=== PATIENT | female | born 1995 | race African-American/Black ===

== ENCOUNTER → 2016-11-08 | Outpatient (CLI) | payer MEDICAID ==
--- NOTE | 2016-11-08 16:56 | RADIOLOGY REPORT (SQ) ---
EXAM DESCRIPTION: U/S [id number] TRNABD 1GES W/ODOP COMPLETED DATE/TIME: 11/08/2016 4:41 pm REASON FOR STUDY: ENCOUNTER FOR SUPERVISION OF OTHER NORMAL Z34.81 ENCOUNTER FOR SUPRVSN OF NORMAL , FIRST TRIM COMPARISON: None. TECHNIQUE: Transabdominal static and realtime grayscale images acquired of the pelvis. Additional se lected spectral and color Doppler images recorded. All images stored on PACs. bHCG: Not applicable. LIMITATIONS: None. FINDINGS: FETUS: Living intrauterine . EGA: 10 week. NIA: 06/06/2017. FHR: 180 beats per minute. SUBCHORIONIC BLEED: Yes. SIZE OF BLEED: Hypoechoic areas measuring 0.9 x 1.3 x 3.2 cm and 0.9 x 1.3 x 3.9 cm. UTERUS: No masses. No anomalies. CERVICAL LENGTH: 3.8 cm. Closed. RIGHT ADNEXA: Normal ovary with normal vascular flow. No adnexal free fluid. No adnexal masses. LEFT ADNEXA: Normal ovary with normal vascular flow. No adnexal free fluid. No adnexal masses. FREE FLUID: None. OTHER: No other significant finding. IMPRESSION: LIVING INTRAUTERINE . EGA 10 WEEK. HYPOECHOIC AREAS CONCERNING FOR SUBCHORIONIC BLEED. Trimester of : First - 0 to 13 weeks. TECHNICAL DOCUMENTATION: JOB ID: [id number] [employer]- All Rights Reserved
== END ==
LOC: RAD 15:12
PROVIDERS: ATTEND Nurse Practitioner Women's Health
DX: Z34.81 Encounter for supervision of other normal pregnancy, first trimester (principal)
CPT/HCPCS: 76801

== ENCOUNTER 2017-05-24 18:27 | Outpatient (CLI) | payer MEDICAID ==
[2017-05-24 19:03] LABS: APPEARANCE,URINE CLEAR; BILIRUBIN,URINE NEGATIVE (NEGATIVE); COLOR,URINE COLORLESS; GLUCOSE, URINE NEGATIVE (NEGATIVE); KETONES,URINE NEGATIVE (NEGATIVE); LEUKOCYTE ESTERASE,URINE NEGATIVE (NEGATIVE); NITRITE,URINE NEGATIVE (NEGATIVE); PROTEIN,URINE NEGATIVE (NEGATIVE); URINE SPECIFIC GRAVITY 1.002; UROBILINOGEN,URINE NEGATIVE mg/dL (<2.0)
--- NOTE | 2017-05-24 19:10 | Non Stress Test Report ---
Non Stress Test Datetime Report Generated by CPN: 05/24/2017 19:10 DEMOGRAPHIC EGA NST: 37.3 INDICATION Indication for Study: Decreased Movement VITAL SIGNS Temperature - NST: 98.1 MONITORING Monitor Explained: Monitor Explained; Test Explained; Patient Verbalized Understanding Time on Monitor: 05/24/2017 18:46 Time off Monitor: 05/24/2017 19:06 NST Duration: 20 NST INTERVENTIONS NST Interventions: PO Hydration; Reposition Patient Physician Notified NST: Arcenio, CNM BABY A: [id number] BABY A Movement : Present Contraction Frequency : 0 FHR Baseline : 130 Accelerations : 15X15 Decelerations : None Variability : Moderate 6-25bpm NST Review: Meets Criteria for Reactive NST NST Review and Verified By : Mireya Momin RN NST Results: Reactive NST REPORT Report Trigger: Send Report
[2017-05-24 20:31] LABS: URINE AMPHETAMINES SCREEN NEGATIVE; URINE BARBITURATES SCREEN NEGATIVE; URINE BENZODIAZEPINES SCREEN NEGATIVE; URINE COCAINE SCREEN NEGATIVE; URINE MARIJUANA (THC) SCREEN NEGATIVE; URINE METHADONE SCREEN NEGATIVE; URINE PHENCYCLIDINE SCREEN NEGATIVE
== END 2017-05-24 19:08 | disposition home or self-care (01) ==
LOC: LC 18:27
PROVIDERS: ATTEND Student in an Organized Health Care Education/Training Program
PROC: 4A1HXCZ Monitoring of Products of Conception, Cardiac Rate, External Approach (ICD-10-PCS; principal; 2017-05-24)
DX: O47.1 False labor at or after 37 completed weeks of gestation (principal); Z3A.37 37 weeks gestation of pregnancy
CPT/HCPCS: 59025; 80307; 81005

== ENCOUNTER 2017-06-06 02:13 | Inpatient (IN) | payer MEDICAID ==
[2017-06-06 03:13] LABS: APPEARANCE,URINE SLIGHTLY-CLOUDY; BILIRUBIN,URINE NEGATIVE (NEGATIVE); COLOR,URINE YELLOW; GLUCOSE, URINE NEGATIVE (NEGATIVE); KETONES,URINE NEGATIVE (NEGATIVE); LEUKOCYTE ESTERASE,URINE LARGE (NEGATIVE); NITRITE,URINE NEGATIVE (NEGATIVE); PROTEIN,URINE NEGATIVE (NEGATIVE); URINE SPECIFIC GRAVITY 1.004
[2017-06-06 03:40] LABS: URINE AMPHETAMINES SCREEN NEGATIVE; URINE BARBITURATES SCREEN NEGATIVE; URINE BENZODIAZEPINES SCREEN NEGATIVE; URINE COCAINE SCREEN NEGATIVE; URINE MARIJUANA (THC) SCREEN NEGATIVE; URINE METHADONE SCREEN NEGATIVE; URINE PHENCYCLIDINE SCREEN NEGATIVE
[2017-06-06] MEDS ORDERED: RINGERS SOLUTION,LACTATED 1,000 ML IV PRN (04:14)
[2017-06-06] MEDS ORDERED: PENICILLIN G POTASSIUM 5,000,000 UNIT in DEXTROSE 5%-WATER 100 ML IV ONE (04:14)
[2017-06-06] MEDS ORDERED: RINGERS SOLUTION,LACTATED 1,000 ML IV ONE (04:14)
[2017-06-06] MEDS ORDERED: PENICILLIN G-K 5 MILLION UNIT VIAL ONE (04:23)
[2017-06-06] MEDS ORDERED: MISOPROSTOL 0.2 MG TABLET ONE (04:30)
[2017-06-06] MEDS ORDERED: OXYTOCIN/NORMAL SALINE 20 UNIT/1,000 ML RTUINJ ONE (04:30)
[2017-06-06] MEDS ORDERED: LIDOCAINE 1% INJ-PF (10 MG/ML) 30 ML SDV ONE (04:30)
[2017-06-06 04:42] LABS: ABSOLUTE LYMPHOCYTES (AUTO) 1.4 10^3/uL (0.5-4.7); ABSOLUTE MONOCYTES (AUTO) 0.6 10^3/uL (0.1-1.4); ABSOLUTE NEUT (AUTO) 4.8 10^3/uL (1.7-8.2); BASOPHILS % (AUTO) 0.5 % (0-2); EOSINOPHILS % (AUTO) 0.5 % (0-6); HEMATOCRIT 36.3 % (36.0-47.0); HEMOGLOBIN 12.6 g/dL (12.0-15.5); LYMPHOCYTES % (AUTO) 20.5 % (13-45); MEAN CORPUSCULAR HEMOGLOBIN 33.6 pg (27.0-33.4); MEAN CORPUSCULAR HGB CONC 34.8 g/dL (32.0-36.0); MEAN CORPUSCULAR VOLUME 97 fl (80-97); MONOCYTES % (AUTO) 9.3 % (3-13); PLATELET COUNT 213 10^3/uL (150-450); RED BLOOD COUNT 3.75 10^6/uL (3.72-5.28); RED CELL DISTRIBUTION WIDTH 15.1 % (11.5-14.0); SEGMENTED NEUTROPHILS % (AUTO) 69.2 % (42-78); TOTAL CELLS COUNTED % (AUTO) 100 %
[2017-06-06] MEDS ORDERED: BUPIVACAINE HCL 0.25 % INJ/PF (2.5 MG/1 ML) 30 ML VIAL ONE (05:02)
[2017-06-06] MEDS ORDERED: EPHEDRINE SULFATE INJ 50 MG/1 ML AMPULE ONE (05:02)
[2017-06-06] MEDS ORDERED: FENTANYL/BUPIVACAINE/NS/PF 200 MCG/100 ML RTUINJ EPI ONE (05:02)
[2017-06-06] MEDS ORDERED: OXYTOCIN/NORMAL SALINE 20 UNIT/1,000 ML RTUINJ IV PRN (06:47)
[2017-06-06] MEDS ORDERED: GLYCERIN/WITCH HAZEL LEAF 1 EACH MED..PAD TP PRN (06:47)
[2017-06-06] MEDS ORDERED: ACETAMINOPHEN WITH CODEINE #3 TABLET PO PRN ×2 (06:47)
[2017-06-06] MEDS ORDERED: PROMETHAZINE HCL 25 MG SUPP.RECT PR PRN (06:47)
[2017-06-06] MEDS ORDERED: MAGNESIUM HYDROXIDE SUSP 30 ML UDCUP PO PRN (06:47)
[2017-06-06] MEDS ORDERED: ACETAMINOPHEN 650 MG SUPP.RECT PR PRN (06:47)
[2017-06-06] MEDS ORDERED: DIPH/PERTUSS(ACELL)/TETANUS VAC/PF 0.5 ML SYR (>=10YO) IM PRN (06:47)
[2017-06-06] MEDS ORDERED: PROMETHAZINE HCL INJ 25 MG/1 ML VIAL IV PRN (06:47)
[2017-06-06] MEDS ORDERED: DIPHENHYDRAMINE HCL 25 MG CAPSULE PO PRN (06:47)
[2017-06-06] MEDS ORDERED: PROMETHAZINE HCL 25 MG TABLET PO PRN (06:47)
[2017-06-06] MEDS ORDERED: MEASLES,MUMPS&RUBELLA VACC/PF 0.5 ML VIAL SUBCUT PRN (06:47)
[2017-06-06] MEDS ORDERED: ZOLPIDEM TARTRATE 5 MG TABLET PO PRN (06:47)
[2017-06-06] MEDS ORDERED: NA PHOS,M-B/NA PHOS,DI-BA (ADULT) 133 ML ENEMA PR PRN (06:47)
[2017-06-06] MEDS ORDERED: DIBUCAINE 1% OINTMENT 28 GM TP PRN (06:47)
[2017-06-06] MEDS ORDERED: BENZOCAINE/MENTHOL AEROSOL SPRAY 56 ML TOP PRN (06:47)
[2017-06-06] MEDS ORDERED: PSEUDOEPHEDRINE HCL 30 MG TABLET PO PRN (06:47)
[2017-06-06] MEDS ORDERED: ACETAMINOPHEN 325 MG TABLET ONE ×2 (07:52→10:19)
[2017-06-06] MEDS ORDERED: PENICILLIN G POTASSIUM 2,500,000 UNIT in DEXTROSE 5%-WATER 50 ML IV SCH (08:14)
[2017-06-06] MEDS ORDERED: PENICILLIN G-K 5 MILLION UNIT VIAL IV SCH (08:15)
--- NOTE | 2017-06-06 08:31 | Delivery Summary ---
Del Sum A-C Datetime Report Generated by CPN: 06/06/2017 08:30 DELIVERY PERSONNEL DELIVERY PERSONNEL: [id number] Delivery Doctor:: Jonathan Ribeiro MD Labor and Delivery Nurse:: Hermelinda Rodarte RN Labor and Delivery Nurse:: Beth Gerardo RN Burrer Marker Axle/STOCK LAYER: [place], STOCK LAYER MATERNAL INFORMATION Delivery Anesthesia: Epidural Medications After Delivery: Pitocin Bolus-Please Comment; Pitocin Drip 20 Units/1000ml NSS Estimated Blood Loss (ml): 250 Maternal Complications: None LABOR SUMMARY EDC: 06/11/2017 00:00 No. Babies in Womb: 1 Attempted: No Labor Anesthesia: Epidural LABOR INFORMATION Reason for Induction: Not Applicable Onset of Labor: 06/06/2017 03:56 Complete Dilatation: 06/06/2017 06:21 Oxytocin: N/A Group B Beta Strep: POSITIVE Antibiotics # of Doses: 1 Antibiotics Time of Last Dose: 0432 Name of Antibiotic Given: PCN Steroids Given: None Reason Steroids Not Administered: Not Applicable MEMBRANES Membranes Rupture Method: Artificial Rupture of Membranes: 06/06/2017 06:27 Length of Rupture (hr): 0.10 Amniotic Fluid Color: Clear Amniotic Fluid Amount: Moderate Amniotic Fluid Odor: Normal STAGES OF LABOR Stage 1 hr: 2 Stage 1 min: 25 Stage 2 hr: 0 Stage 2 min: 12 Stage 3 hr: 0 Stage 3 min: 7 Total Time in Labor hr: 2 Total Time in Labor min: 44 VAGINAL DELIVERY Episiotomy: None Laceration #1: None Laceration Extension #1: N/A Laceration Repair: Not Applicable Sponge Count Correct: Vaginal Sweep Performed Sharps Count Correct: Yes CSECTION DELIVERY Primary Indication: N/A Secondary Indication: N/A CSection Incidence: N/A Labor: N/A Elective: N/A CSection Incision: N/A BABY A INFORMATION Delivery Date/Time: 06/06/2017 06:33 Method of Delivery: Vaginal Born in Route : No : N/A Forceps: N/A Vacuum Extraction: N/A Shoulder Dystocia : No PRESENTATION/POSITION BABY A Presentation: Cephalic Cephalic Presentation: Vertex Vertex Position: Left Occipital Anterior Breech Presentation: N/A PLACENTA INFORMATION BABY A Placenta Delivery Time : 06/06/2017 06:40 Placenta Method of Delivery: Spontaneous Placenta Status: Delivered SCORES BABY A Heart Rate 1 min: >100 bpm Resp Effort 1 min: Good Cry Reflex Irritability 1 min: Cough or Sneeze or Pulls Away Muscle Tone 1 min: Active Motion Color 1 min: Blue/Pale SCORE 1 MIN: 8 Heart Rate 5 min: >100 bpm Resp Effort 5 min: Good Cry Reflex Irritability 5 min: Cough or Sneeze or Pulls Away Muscle Tone 5 min: Active Motion Color 5 min: Body [place], Extremities Blue SCORE 5 MIN: 9 INFANT INFORMATION BABY A Gestational Age at Delivery: 39.2 Gestational Status: Full Term- 39- 40.6 Weeks Outcome : Liveborn Condition : Stable Infant Sex: Male IDENTIFICATION BABY A Infant Verification Date/Time: 06/06/2017 06:40 ID Band Number: [id number] Mother's Name Verified: Yes Infant RN Verifying : SBraulio Canas, RN Additional Verifying Personnel: [employer], ST WEIGHT/LENGTH BABY A Birthweight (gm): 3280 Weight (lb): 7 Infant Weight (oz): 4 Length (in): 19.25 Infant Length (cm): 48.90 CORD INFORMATION BABY A No. Cord Vessels: 3 Nuchal Cord : N/A Cord Blood Taken: Yes-For Eval (Mom's Blood Type - or O+) Infant Suction: Mouth; Nose ASSESSMENT BABY A Infant Complications: None Physical Findings at Delivery: Within Normal Limits Respirations: Appears Normal Skin to Skin: No Transferred To: Remains with Mother BABY B INFORMATION : N/A SIGNATURES Signature: with User ID: [email or web address]
--- NOTE | 2017-06-06 08:53 | Admission Physical ---
Datetime Report Generated by CPN: 06/06/2017 08:53 CURRENT ADMISSION Chief Complaint: Uterine Contractions Indication for Induction: Not Applicable Indication for Induction: Term, Intrauterine Admit Plan: Admit to Unit; Initiate Labor Protocol ALLERGIES Medication Allergies: No Medication Allergies: No Known Drug Allergies (06/06/2017) Medication Allergies: No Known Drug Allergies (01/20/2014) Latex: No Latex Allergies Food Allergies: none Environmental Allergies: none OBSTETRICAL HISTORY EDC: 06/11/2017 00:00 : 5 Para: 1 Term: 1 : 0 SAB: 0 IAB: 3 Ectopic: 0 Livin Cesareans: 0 VBACs: 0 Multiple Births: 0 Gestational Diabetes: No Rh Sensitization: No Incompetent Cervix: No RUPAL: No Infertility: No ART Treatment: No Uterine Anomaly: No IUGR: No Hx Previous C/S: No Macrosomia: No Hx Loss/Stillborn: No PIH: No Hx : No Placenta Previa/Abruption: No Depression/PP Depression: No PTL/PROM: No Post Hemorrhage: No Obstetrical History Comments: G1 2011 EAB G2 2012 EAB G3 2013 41 wks 7lb 6oz G4 2014 EAB G5 current SEE RECORDS Alcohol: No Marijuana : No Cocaine: No Other Illicit Drugs: No Cigarettes: Never Smoker. [id number] MEDICAL HISTORY Diabetes: No Blood Transfusion: No Pulmonary Disease (Asthma, TB): No Breast Disease: No Hypertension: No Gaming Table Operator Surgery: No Heart Disease: No Hosp/Surgery: No Autoimmune Disorder: No Anesthetic Complications: No Kidney Disease: No Abnormal Pap Smear: No Neuro/Epilepsy: No Psychiatric Disorders: No Other Medical Diseases: No Hepatitis/Liver Disease: No Significant Family History: No Varicosities/Phlebitis: No Trauma/Violence : No Thyroid Dysfunction: No Medical History Comments: anemia, subchorionic bleed INFECTIOUS HISTORY Gonorrhea: No Genital Herpes: No Chlamydia: No Tuberculosis: No Syphilis: No Hepatitis: No HIV/AIDS Exposure: No Rash or Viral Illness: No HPV: No Infectious History Comments: chlamydia 11/2012 PHYSICAL EXAM General: Normal HEENT: Normal Neurologic: Normal Thyroid: Normal Heart: Normal Lungs: Normal Breast: Deferred Back: Normal Abdomen: Normal Genitourinary Exam: Normal Extremities: Normal DTRs: Normal Pelvic Type: Adequate Vital Signs: Reviewed VAGINAL EXAM Dilatation: 5 Effacement: 100 Station: 0 MEMBRANES Pooling: Negative Membranes: Intact FETUS A EGA: 39.2 Monitoring: External US FHR- Baseline: 140 Variability: Moderate 6-25bpm Decelerations: None FHR Category: Category I Presentation: Vertex Admit Comment: Anticipate PLANS FOR LABOR AND DELIVERY Labor and Delivery: None Pain Management: Epidural Feeding Preference: Both Benefit of Breast Feed Discussed: Yes Circumcision: Yes INFORMED CONSENT Signature: with User ID: [email or web address]
[2017-06-06] MEDS ORDERED: FAMOTIDINE 20 MG TABLET PO SCH (10:00)
[2017-06-06] MEDS: PRENATAL VITAMIN W DHA CAPSULE PO SCH (10:21)
[2017-06-06] MEDS: DOCUSATE SODIUM 100 MG CAPSULE PO SCH ×2 (10:21→18:12)
[2017-06-06] MEDS: SENNOSIDES/DOCUSATE 8.6-50 MG 1 EACH TABLET PO SCH (10:21)
[2017-06-06] MEDS: FERROUS SULFATE 325 MG TABLET PO SCH ×2 (10:21→18:12)
[2017-06-06 10:57] LABS: HEMATOCRIT 34.3 % (36.0-47.0); HEMOGLOBIN 11.8 g/dL (12.0-15.5); MEAN CORPUSCULAR HEMOGLOBIN 33.5 pg (27.0-33.4); MEAN CORPUSCULAR HGB CONC 34.4 g/dL (32.0-36.0); MEAN CORPUSCULAR VOLUME 97 fl (80-97); PLATELET COUNT 211 10^3/uL (150-450); RED BLOOD COUNT 3.52 10^6/uL (3.72-5.28); WHITE BLOOD COUNT 10.5 10^3/uL (4.0-10.5)
[2017-06-06] MEDS: IBUPROFEN 800 MG TABLET PO SCH ×2 (13:55→22:05)
[2017-06-07] MEDS: IBUPROFEN 800 MG TABLET PO SCH ×3 (05:56→22:49)
[2017-06-07 08:48] LABS: HEMATOCRIT 36.7 % (36.0-47.0); HEMOGLOBIN 12.7 g/dL (12.0-15.5); MEAN CORPUSCULAR HEMOGLOBIN 33.5 pg (27.0-33.4); MEAN CORPUSCULAR HGB CONC 34.5 g/dL (32.0-36.0); MEAN CORPUSCULAR VOLUME 97 fl (80-97); PLATELET COUNT 205 10^3/uL (150-450); RED BLOOD COUNT 3.78 10^6/uL (3.72-5.28); RED CELL DISTRIBUTION WIDTH 14.9 % (11.5-14.0); WHITE BLOOD COUNT 7.3 10^3/uL (4.0-10.5)
[2017-06-07] MEDS: FERROUS SULFATE 325 MG TABLET PO SCH ×2 (10:57→18:31)
[2017-06-07] MEDS: PRENATAL VITAMIN W DHA CAPSULE PO SCH (10:58)
[2017-06-07] MEDS: SENNOSIDES/DOCUSATE 8.6-50 MG 1 EACH TABLET PO SCH (10:58)
[2017-06-07] MEDS: DOCUSATE SODIUM 100 MG CAPSULE PO SCH ×2 (10:58→18:31)
--- NOTE | 2017-06-07 12:14 | PDOC PROGRESS REPORT ---
Subjective-OB Progress Note for:: 06/07/17 Physical Exam (OB) Vital Signs: Temp Pulse Resp BP Pulse Ox 97.7 F 59 L 16 118/76 100 06/07/17 08:29 06/07/17 08:29 06/07/17 08:29 06/07/17 08:29 06/07/17 08:29 Intake & Output 06/06/17 06/07/17 06/08/17 06:59 06:59 06:59 Weight 81.6 kg - Abdomen Description: Soft Hernia Present: No Fundal Description: Firm, Midline Fundal Height: u/u - u/2 - Abdominal Tenderness: Nontender - Extremities Lower extremities: Linda's sign - neg Calf: Normal, Nontender Objective-Diagnostic Laboratory: 06/07/17 08:31 06/07/17 08:31 WBC 7.3 RBC 3.78 Hgb 12.7 Hct 36.7 MCV 97 MCH 33.5 H MCHC 34.5 RDW 14.9 H Plt Count 205 Assessment and Plan(PN) - Assessment and Plan (1) Vaginal delivery Is this a current diagnosis for this admission?: Yes - Time Spent with Patient Time with patient: Less than 15 minutes - Disposition Anticipated Discharge: Home Within: within 24 hours
[2017-06-08] MEDS: IBUPROFEN 800 MG TABLET PO SCH ×2 (05:47→13:15)
--- NOTE | 2017-06-08 11:29 | PDOC PROGRESS REPORT ---
Subjective-OB Progress Note for:: 06/08/17 Subjective: Ready for discharge. Physical Exam (OB) Vital Signs: Temp Pulse Resp BP Pulse Ox 98.4 F 51 L 14 119/68 99 06/08/17 08:19 06/08/17 08:19 06/08/17 08:19 06/08/17 08:19 06/08/17 08:19 - PIH/Pre-Eclampsia DTR's: 2 + Clonus: Negative Headache: Absent Epigastric Pain: No Visual Changes: No - Lochia Lochia Amount: Scant < 10 ml Lochia Color: Rubra/Red - Abdomen Description: Tender, Soft Hernia Present: No Bowel Sounds: Normoactive Flatus Presence: Present Stool: Yes Fundal Description: Firm, Midline Fundal Height: u/u - u/2 Objective-Diagnostic Laboratory: 06/07/17 08:31 Assessment and Plan(PN) - Disposition Anticipated Discharge: Home
--- NOTE | 2017-06-08 11:35 | PDOC DISCHARGE SUMMARY ---
Final Diagnosis Discharge Date: 06/08/17 - Final Diagnosis (1) Positive GBS test Is this a current diagnosis for this admission?: Yes (2) Is this a current diagnosis for this admission?: Yes (3) Vaginal delivery Is this a current diagnosis for this admission?: Yes Discharge Data - Discharge Medication Home Medications: Vits96/Iron Fum/Folic [ Tablet] 1 tab PO DAILY 10/19/13 Gestational Age: 39.2 wks Reason(s) for Admission: Onset of Labor Procedures: Ultrasound Intrapartum Procedure(s): Spontaneous Vaginal Delivery - [place] Data Baby 1 Male at 1 minute: 8 at 5 minutes: 9 Weight: 3.289 kg Home with Mother: Yes Complications: No - Diagnosis Test Laboratory: Temp Pulse Resp BP Pulse Ox 98.4 F 51 L 14 119/68 99 06/08/17 08:19 06/08/17 08:19 06/08/17 08:19 06/08/17 08:19 06/08/17 08:19 06/06/17 06/06/17 06/06/17 02:22 04:27 10:50 RBC 3.75 3.52 L Hgb 12.6 11.8 L Hct 36.3 34.3 L Urine Opiates Screen NEGATIVE 06/07/17 08:31 RBC 3.78 Hgb 12.7 Hct 36.7 Urine Opiates Screen - Discharge information/Instructions Discharge Activity: Activity As Tolerated, Balance Activity w/Rest, Pelvic Rest , Slowly Increase Activity, No tub bath Discharge Diet: Regular Disposition: HOME, SELF-CARE Follow up with: [facility] in: 4, Weeks
[2017-06-08 12:19] VITALS: BP 123/74
[2017-06-08] MEDS: FERROUS SULFATE 325 MG TABLET PO SCH (13:15)
[2017-06-08] MEDS: PRENATAL VITAMIN W DHA CAPSULE PO SCH (13:15)
[2017-06-08] MEDS: DOCUSATE SODIUM 100 MG CAPSULE PO SCH (13:15)
[2017-06-08] MEDS: SENNOSIDES/DOCUSATE 8.6-50 MG 1 EACH TABLET PO SCH (13:15)
== END 2017-06-08 14:08 | disposition home or self-care (01) | DRG 775 ==
LOC: LC 02:13 → LR 04:14 → 2S 08:52
PROVIDERS: ADMIT Obstetrics & Gynecology; ATTEND Obstetrics & Gynecology
PROC: 10E0XZZ Delivery of Products of Conception, External Approach (ICD-10-PCS; principal; 2017-06-06)
PROC: 10907ZC Drainage of Amniotic Fluid, Therapeutic from Products of Conception, Via Natural or Artificial Opening (ICD-10-PCS; 2017-06-06)
PROC: 4A1HXCZ Monitoring of Products of Conception, Cardiac Rate, External Approach (ICD-10-PCS; 2017-06-06)
DX: O99.824 Streptococcus B carrier state complicating childbirth (principal); O99.02 Anemia complicating childbirth; D64.9 Anemia, unspecified; Z3A.39 39 weeks gestation of pregnancy; Z37.0 Single live birth
CPT/HCPCS: 36415; 80307; 81005; 85025; 85027; 86592; 86850; 86900; 86901; J2540; J2590; J3490